=== PATIENT | male | born 1970 | race Two or more races ===

== ENCOUNTER 2025-01-30 15:38 | Emergency (ER) | payer MEDICAID, SELFPAY ==
[2025-01-30 15:53] VITALS: BP 120/80; PULSE 104; RESP 18; TEMP 37.2; O2SAT 95; BMI 38.0
--- NOTE | 2025-01-30 16:05 | XR_ITS ---
EXAMINATION: PA lateral chest 2 views TECHNIQUE: Upright PA lateral chest 2 views Date and time: January 30, 2025 1611 hours, comparison April 26, 2023 INDICATIONS: Chest and back pain beginning 3 days ago. FINDINGS: Normal heart size No pneumonia or pulmonary edema The Scott structures are intact IMPRESSION: No pneumonia or pulmonary edema
--- NOTE | 2025-01-30 16:06 | PD.EDRME ---
Rapid Medical Screening Exam RME Arrival date/time: 01/30/25 15:38 54-year-old male presents to the emergency department today with complaints of generalized bodyaches and pain concerned that he may have a fever Chief Complaint: Fever Time Seen by Provider: 01/30/25 15:43 Vital signs: Vital Signs Temperature 99 F 01/30/25 15:53 Pulse Rate 104 H 01/30/25 15:53 Respiratory Rate 18 01/30/25 15:53 Blood Pressure 120/80 01/30/25 15:53 Pulse Oximetry (%) 95 01/30/25 15:53 Oxygen Delivery Method Room Air 01/30/25 15:53 Vital signs reviewed by provider: Yes Exam: Clinically patient well-appearing does not appear ill or toxic Clinical Impression: Labs and imaging obtained
[2025-01-30 16:36] LABS: Lactate (Lactic Acid) 1.1 mMol/L (0.4-2.0)
[2025-01-30 16:41] LABS: COVID-19 Antigen (In-House) Negative (Negative); Influenza A Ag Negative; Influenza B Ag Negative
[2025-01-30 16:41] LABS: Basophils # (Auto) 0.0 Thou/mm3 (0.0-0.2); Basophils % (Auto) 0 % (0-2.5); Eosinophils # (Auto) 0.0 Thou/mm3 (0.0-0.5); Eosinophils % (Auto) 0 % (0-10); Hematocrit 40.7 % (41.0-53.0); Hemoglobin 13.7 g/dL (13.5-16.0); Immature Granulocytes Auto 0.06 Thou/mm3 (0.00-0.00); Lymphocytes # (Auto) 1.4 Thou/mm3 (1.0-4.8); Lymphocytes % (Auto) 13 % (10-50); Mean Corpuscular HGB Conc 33.7 g/dl (31.0-37.0); Mean Corpuscular Hemoglobin 29.0 pg (25.0-35.0); Mean Corpuscular Volume 86 fL (80-100); Monocytes # (Auto) 0.9 Thou/mm3 (0.0-0.8); Monocytes % (Auto) 8 % (0-12); Neutrophils # (Auto) 8.8 Thou/mm3 (1.8-7.7); Neutrophils % (Auto) 79 % (37-80); Nucleated Red Blood Cell # 0.00 Thou/mm3 (0.00-0.00); Nucleated Red Blood Cell % 0 /100 WBC (0); Platelet Count 256 Thou/mm3 (140-440); RDW Standard Deviation 38.8 fL (35.1-43.9); Red Blood Count 4.72 Miln/mm3 (4.50-5.90); White Blood Count 11.2 Thou/mm3 (3.8-10.6)
[2025-01-30 17:08] LABS: Alanine Aminotransferase 16 U/L (10-49); Albumin, Serum 4.7 gm/dL (3.5-5.0); Albumin/Globulin Ratio 1.4 (1.2-2.2); Alkaline Phosphatase 80 U/L (46-116); Anion Gap 10 (7-16); Aspartate Amino Transferase 23 U/L (0-34); BUN/Creatinine Ratio 12 Ratio (12-20); Bilirubin,Total 0.3 mg/dL (0.3-1.2); Blood Urea Nitrogen 12 mg/dL (9-23); Calcium 9.3 mg/dL (8.3-10.6); Calcium (Corrected) 9.3 mg/dL (8.5-10.1); Carbon Dioxide 25.7 mMol/L (20.0-31.0); Chloride 101 mMol/L (98-107); Creatinine (Component) 1.0 mg/dL (0.6-1.3); Estimated Creatinine Clearance 106.6 mL/min (>60); Globulin 3.4 gm/dL (2.3-3.5); Glucose 101 mg/dL (74-106); Osmolality,Calculated 273 (275-295); Potassium 4.0 mMol/L (3.4-5.1); Procalcitonin 0.10 ng/ml (0.0-0.49); Sodium 137 mMol/L (136-145); Total Protein 8.1 gm/dL (5.7-8.2); eGFR > 60 See Note
[2025-01-30 17:44] LABS: Collection Type, Urine Clean Catch
[2025-01-30 18:22] LABS: Bilirubin,Urine 1+ (Negative); Blood,Urine 1+ (Negative); Clarity,Urine Clear (Clear/Hazy); Color,Urine Yellow (Lt Yel-Yel); Glucose, Urine Negative (Negative); Hyaline Casts,Urine < 1 /hpf (0-1); Ketones,Urine Trace (Negative); Leukocyte Esterase,Urine Negative (Negative); Nitrite,Urine Negative (Negative); PH,Urine 6.0 (5.0-7.0); Protein,Urine 1+ (Neg - Trace); RBC,Urine 6 /hpf (0-3); Specific Gravity,Urine 1.042 (1.001-1.035); Squamous Epithelial Cell,Urine 1 /hpf (0-5); Urobilinogen,Urine 3.0 mg/dL (0.0-1.0); WBC,Urine 3 /hpf (0-5)
--- NOTE | 2025-01-30 19:34 | EDNOTE_ITS ---
ED Fever RME/HPI General Chief Complaint: Fever Stated Complaint: FEVER, BACK/ARM/LEG PAIN (12/08) Time Seen by Provider: 01/30/25 15:43 Arrival date/time: 01/30/25 15:38 Limitations: no limitations RME / HPI RME / HPI Narrative: 01/30/25 15:38 54-year-old male presents to the emergency department today with complaints of generalized bodyaches and pain concerned that he may have a fever Dr. Moy's Main ED Evaluation: 54yo male presents to the ED for complaints of lower back pain and generalzied body aches x 3 days. Patient denies any fever, chills, cough, congestion, dysuria, chest pain, shortness of breath, or any other associated symptoms. Patient took ibuprofen at home with minimal improvement of symptoms. Patient denies any sick contacts at home. NKA. Related Data Previous Rx's ?Medication ?Instructions ?Recorded naproxen 500 mg tablet 500 mg PO BID PRN pain #30 t abs 02/15/23 Allergies Allergy/AdvReac Type Severity Reaction Status Date / Time No Known Allergies Allergy Verified 01/30/25 15:43 Review of Systems Review of Systems Systems Reviewed: All systems reviewed, normal except as documented Past Medical History Past Medical History CARDIAC: Negative Congestive Heart Failure RESPIRATORY: Negative Chronic Obstructive Pulmonary Disease (COPD) GENITOURINARY: Negative Renal Disease ENDOCRINE: Negative Diabetes Mellitus Type 1 or Diabetes Mellitus Type 2 Social History SMOKING STATUS: Never smoker Physical Exam General Limitations: no limitations General appearance: alert and in no apparent distress Head Head exam: atraumatic Eye Eye exam: Present normal appearance, PERRL and EOMI ENT ENT exam: Present normal exam, normal oropharynx and mucous membranes dry Neck Neck exam: Present normal inspection, full ROM and trachea midline Chest Chest inspection: Present normal inspection and symmetric chest wall rise Respiratory Respiratory exam: Present normal lung sounds bilaterally Cardiovascular Cardiovascular exam: Present regular rate, normal rhythm and normal heart sounds Abdominal Exam Abdominal exam: Present soft and normal bowel sounds Extremities Exam Extremities exam: Present normal inspection and full ROM Back Exam Back exam: Present normal inspection and full ROM Neurological Exam Neurological exam: Present alert, oriented X3 and CN II-XII intact Psychiatric Psychiatric exam: Present normal affect and normal mood Skin Skin exam: Present warm, dry, intact and normal color ED Exam General Limitations: Present no limitations General appearance: Present alert and in no apparent distress Head Head exam: Present atraumatic Eye Eye exam: Present normal appearance, PERRL and EOMI ENT ENT exam: Present normal exam, normal oropharynx and mucous membranes dry Neck Neck exam: Present normal inspection, full ROM and trachea midline Chest Chest inspection: Present normal inspection and symmetric chest wall rise Respiratory Respiratory exam: Present normal lung sounds bilaterally Cardiovascular Cardiovascular exam: Present regular rate, normal rhythm and normal heart sounds Abdominal Exam Abdominal exam: Present soft and normal bowel sounds Extremities Exam Extremities exam: Present normal inspection and full ROM Back Exam Back exam: Present normal inspection and full ROM Neurological Exam Neurological exam: Present alert, oriented X3 and CN II-XII intact Psychiatric Psychiatric exam: Present normal affect and normal mood Skin Skin exam: Present warm, dry, intact and normal color Course Course Course Narrative: CXR is ordered for determining the etiology of fever. Quality Measures none Orders Category Date Time Status XR chest 2V Stat Exams 01/30/25 16:05 Completed Blood Culture (Lab) Stat Lab 01/30/25 16:29 Received CBC Stat Lab 01/30/25 16:27 Completed COVID-19 Antigen (In-House) Stat Lab 01/30/25 16:15 Completed Comprehensive Metabolic Panel Stat Lab 01/30/25 16:27 Completed FLU A&B [Influenza A & B Rapid Panel] Stat Lab 01/30/25 16:15 Completed Lactate (Lactic Acid) Stat Lab 01/30/25 16:27 Completed Procalcitonin Stat Lab 01/30/25 16:27 Completed Urinalysis Stat Lab 01/30/25 17:15 Completed Urine Culture Stat Lab 01/30/25 17:15 Received Vital Signs Vital signs: Vital Signs Temperature 99 F 01/30/25 15:53 Pulse Rate 104 H 01/30/25 15:53 Respiratory Rate 18 01/30/25 15:53 Blood Pressure 120/80 01/30/25 15:53 Pulse Oximetry (%) 95 01/30/25 15:53 Oxygen Delivery Method Room Air 01/30/25 15:53 Fever MDM Narrative MDM Narrative:: Scribe Attestation: 01/30/25 - Zaida Overton am scribing for and in the presence of Dr. Moy. Patient data External records reviewed:: [facility] previous records (Per chart review, patient was seen here on 04/26/23 for syncope.) Clinical information provided by:: patient Social determinants that could affect healthcare access:: none Patient has the following chronic illnesses:: none How is presenting disease/condition affected by chronic disease/condition?: no chronic disease Evaluation data The following diagnostics were reviewed and interpreted by me:: lab results and radiology exam(s) Lab and/or radiology exams considered but not ordered:: none Interpretation Summary: WBC 11.2, CMP normal, Lactic Acid 1.1, Procalcitonin normal, UA negative for UTI. COVID/Influenza negative. ------- [facility] Report Signed Patient: DMITRI SEPULVEDA Record#: [id number] Birthdate: 1970 Age/Sex: 54 / M Location: [facility] Attending Dr: Ordering Physician: Charlene FARAH)Vijay NP Date of Service: 01/30/25 Procedure(s): XR chest 2V Accession Number(s): [id number] cc: Charlene FARAH),Vijay HUMPHREY; Osmel Chaidez MD; NO PRIMARY/FAMILY,PHYSICIAN~ EXAMINATION: PA lateral chest 2 views TECHNIQUE: Upright PA lateral chest 2 views Date and time: January 30, 2025 1611 hours, comparison April 26, 2023 INDICATIONS: Chest and back pain beginning 3 days ago. FINDINGS: Normal heart size No pneumonia or pulmonary edema The Scott structures are intact IMPRESSION: No pneumonia or pulmonary edema Dictated By: Osmel Chaidez MD Signed By: <Electronically signed by Osmel Chaidez MD in > 01/30/25 1726 Medications / Prescriptions Medications or Prescriptions considered but not ordered:: none Medication administrations:: none Consultations Consultation(s) initiated? (list below): No Diagnosis Fever Differential Diagnosis: community acquired pneumonia, viral infection, influenza and other (COVID, dehydration, electrolyte abnormality) Most likely diagnosis given after review of the tests above:: see clinical impression below Admission Indicated Admission indicated?: not indicated Admission Request Was there a request for admission?: No Disposition Plan Disposition Plan: Discharge Discharge Attestation Discharge Attestation: The patient and all family members were given an opportunity to ask questions and understood the discharge instructions. Discharge instructions specifically effects, indications for sooner follow up or return to the emergency department, and the expected course of current diagnosis. Patient condition: Stable Discharge Plan Plan Patient Disposition: HOME (Self Care) Patient condition on transfer: Stable Prescriptions/Referrals Prescriptions/Med Rec: No Action naproxen 500 mg tablet 500 mg PO BID PRN (Reason: pain) Qty: 30 0RF Referrals: No Primary/Family,Physician [Primary Care Provider] - In 1 week Problem List Clinical Impression: Acute dehydration Patient/Caregiver Discharge Instructions Education Materials: ED Dehydration (Adult) Additional Instructions: Return to the emergency department for worsening symptoms, or any other concerns. Ensure that you are staying hydrated. Your urine should be almost clear. Today your chest x-ray and your labs are unremarkable and you do not have pneumonia. You can take bmal-eyk-gpiapnt Tylenol 650 mg 3 times a day as needed for the next 2 to 3 days. Print Language: Bahraini Stand Alone Forms: Marcia Award Info., Patient Portal Info Letter
== END 2025-01-30 20:09 | disposition home or self-care (01) ==
PROVIDERS: Nurse Practitioner Primary Care; Emergency Provider Emergency Medicine
DX: E86.0 Dehydration (principal); R07.9 Chest pain, unspecified; M54.50 Low back pain, unspecified
CPT/HCPCS: 36415; 71046; 80053; 81001; 83605; 84145; 85025; 87040; 87086; 87502; 87811; 99283